=== PATIENT | female | born 1985 | race Caucasian/White ===

== ENCOUNTER 2018-06-24 14:32 | Emergency (ER) | payer OTHER ==
[~2018-06-24] VITALS: Ht 180.3 cm; Wt 129.3 kg
[2018-06-24 15:29] VITALS: BP 151/100
== END 2018-06-24 16:21 | disposition home or self-care (01) ==
LOC: ER 14:32
DX: S92.355A Nondisplaced fracture of fifth metatarsal bone, left foot, initial encounter for closed fracture (principal); F17.210 Nicotine dependence, cigarettes, uncomplicated; W19.XXXA Unspecified fall, initial encounter; Y93.89 Activity, other specified; Y92.89 Other specified places as the place of occurrence of the external cause; Y99.8 Other external cause status
CPT/HCPCS: 29515; 73630